=== PATIENT | female | born 2000 | race Two or more races ===

== ENCOUNTER 2025-01-17 19:49 | Emergency (ER) | payer MEDICAID, SELFPAY ==
[2025-01-17 19:50] VITALS: BMI 29.0
[2025-01-17 20:28] VITALS: BP 121/79; PULSE 106; RESP 16; TEMP 37.4; O2SAT 99
--- NOTE | 2025-01-17 20:46 | EDNOTE_ITS ---
Upper Respiratory Inf. RME/HPI General Chief Complaint: Abdominal Pain Stated Complaint: ABD PAIN, FLU LIKE SYMPTOMS Time Seen by Provider: 01/17/25 20:37 Arrival date/time: 01/17/25 19:49 24F with no significant PMH presents to ED with 2 days of cough, body aches, fevers/chills, dysuria, and L pelvic pain. Limitations: no limitations Related Data Home Medications ?Medication ?Instructions ?Recorded ?Confirmed ferrous sulfate 325 mg (65 mg 325 mg PO QDAY 10/10/19 11/06/19 iron) tablet (iron) vits no.124-ferrous fum 1 tab PO QDAY 9 11/06/19 27 mg iron-folic acid 800 mcg tablet ( Vitamin) Previous Rx's ?Medication ?Instructions ?Recorded ibuprofen 600 mg tablet 600 mg PO Q6H PRN pain #20 t abs 07/30/23 ondansetron 4 mg disintegrating 4 mg PO Q8H PRN nausea and 11/15/23 tablet vomiting #30 tabs cefuroxime axetil 500 mg tablet 500 mg PO BID 7 days # 14 tabs 01/17/25 Allergies Allergy/AdvReac Type Severity Reaction Status Date / Time No Known Allergies Allergy Verified 11/06/19 08:22 Review of Systems Review of Systems Systems Reviewed: All systems reviewed, normal except as documented Constitutional Constitutional: Reports system reviewed and no additional complaints, except as documented, Reports as per HPI, Reports body ache(s), Reports chills, Reports fever(s) and Denies headache(s) ENT Ears, Nose, Mouth, and Throat: Denies disequilibrium and Denies headache(s) Cardiovascular Cardiovascular: Reports system reviewed and no additional complaints, except as documented, Denies chest pain and Denies dyspnea Respiratory Respiratory: Reports system reviewed and no additional complaints, except as documented, Reports as per HPI, Reports cough and Denies dyspnea Gastrointestinal Gastrointestinal: Reports system reviewed and no additional complaints, except as documented, Denies abdominal pain, Denies nausea and Denies vomiting Genitourinary Genitourinary: Reports as per HPI, Reports dysuria and Reports pelvic pain Neurologic Neurologic: Reports system reviewed and no additional complaints, except as documented, Denies confusion, Denies disequilibrium and Denies headache(s) Psychiatric Psychiatric: Denies confusion Past Medical History Past Medical History NEUROLOGIC: Negative Neurological Disorders or Seizures CARDIAC: Negative Cardiac Disorders or Congestive Heart Failure RESPIRATORY: Negative Chronic Obstructive Pulmonary Disease (COPD) GASTROINTESTINAL: Negative Gastrointestinal Disorders GENITOURINARY: Negative Genitourinary Disorders or Renal Disease MUSCULOSKELETAL: Negative Musculoskeletal Disorders ENDOCRINE: Negative Endocrine Disorders, Diabetes Mellitus Type 1, Diabetes Mellitus Type 2 or Hypothyroidism HEMATOLOGIC: Positive Blood Disorders and Anemia OTHER HISTORY: Negative Autoimmune Disease, Blood Transfusions, Blood Tr ansfusion Reaction, Anesthesia Reactions, MRSA, VRSA, Vancomycin-Resistant Enterococci, Human Immunodeficiency Virus (HIV), Chicken Pox, Measles, Mumps, Rubella (Nepalese Measles), Pertussis, Clostridium Difficile or Cancer Family History FAMILY HISTORY: Negative Family Psychiatric Problems, Family Respiratory Disorders, Family Cardiac Disorders, Family Gastrointestinal Problems, Family Cancer, Family Surgery or Family Anesthesia Reaction Surgical History SURGICAL: Negative Endocrine Surgery or Section Social History SMOKING STATUS: Never smoker ED Exam General Limitations: Present no limitations General appearance: Present alert and in no apparent distress Head Head exam: Present atraumatic Eye Eye exam: Present normal appearance, PERRL and EOMI ENT ENT exam: Present normal exam, normal oropharynx and mucous membranes moist Neck Neck exam: Present normal inspection, full ROM and trachea midline Chest Chest inspection: Present normal inspection and symmetric chest wall rise Respiratory Respiratory exam: Present normal lung sounds bilaterally Cardiovascular Cardiovascular exam: Present regular rate, normal rhythm and normal heart sounds Abdominal Exam Abdominal exam: Present soft and normal bowel sounds Extremities Exam Extremities exam: Present normal inspection and full ROM Back Exam Back exam: Present normal inspection and full ROM Neurological Exam Neurological exam: Present alert, oriented X3 and CN II-XII intact Psychiatric Psychiatric exam: Present normal affect and normal mood Skin Skin exam: Present warm, dry, intact and normal color Course Quality Measures none Orders Category Date Time Status Bedside Influenza A&B Antigen Test NOW Care 01/17/25 20:23 Completed HCG Qualitative,Urine Stat Lab 01/17/25 21:02 Completed Urinalysis, C/S if Indicated Stat Lab 01/17/25 21:02 Completed Urine Culture Stat Lab 01/17/25 21:02 Received Fluconazole [Diflucan] Med 01/17/25 21:25 Discontinued 150 mg PO X1 ONE cefuroxime axetiL [cefUROXime axetil] Med 01/17/25 21:25 Discontinued 500 mg PO X1 ONE Vital Signs Vital signs: Vital Signs Temperature 99.4 F 01/17/25 20:28 Pulse Rate 106 H 01/17/25 20:28 Respiratory Rate 16 01/17/25 20:28 Blood Pressure 121/79 01/17/25 20:28 Pulse Oximetry (%) 99 01/17/25 20:28 Oxygen Delivery Method Room Air 01/17/25 20:28 O2 at 99% on RA and WNLs Upper Respiratory Infection MDM Narrative MDM Narrative:: 24F with no significant PMH presents to ED with 2 days of cough, body aches, fevers/chills, dysuria, and L pelvic pain. Physical exam reveals nasal congestion, but otherwise clear ENT and lungs. No ab/pelvic/flank tenderness. Patient is afebrile, calm, and alert. Flu A+. HCG neg. UA shows UTI and yeast. Patient data External records reviewed:: [facility] previous records Clinical information provided by:: patient Social determinants that could affect healthcare access:: none Patient has the following chronic illnesses:: none How is presenting disease/condition affected by chronic disease/condition?: no chronic disease Evaluation data The following diagnostics were reviewed and interpreted by me:: lab results Lab and/or radiology exams considered but not ordered:: ordered Interpretation Summary: above Medications / Prescriptions Medications or Prescriptions considered but not ordered:: ordered Medication administrations:: Medication Administration History Discontinued Medications Cefuroxime Axetil (Cefuroxime Axetil 250 Mg Tablet) 500 mg PO X1 ONE Stop: 01/17/25 21:26 Fluconazole (Fluconazole 150 Mg Tablet) 150 mg PO X1 ONE Stop: 01/17/25 21:26 above Consultations Consultation(s) initiated? (list below): No Diagnosis Upper Respiratory Differential Diagnosis: upper respiratory infection, croup, otitis media, sinusitis, viral infection, bronchitis, influenza, pharyngitis and other (uti/pyelo, yeast infection, appy, ovarian torsion, ) Most likely diagnosis given after review of the tests above:: uti, yeast infection, and flu A Admission Indicated Admission indicated?: not indicated Admission Request Was there a request for admission?: No Disposition Plan Disposition Plan: Discharge Discharge Attestation Discharge Attestation: The patient and all family members were given an opportunity to ask questions and understood the discharge instructions. Discharge instructions specifically effects, indications for sooner follow up or return to the emergency department, and the expected course of current diagnosis. Patient condition: Stable Discharge Plan Plan Patient Disposition: HOME (Self Care) Disposition Comment: Stable Prescriptions/Referrals Prescriptions/Med Rec: New cefuroxime axetil 500 mg tablet 500 mg PO BID 7 Days Qty: 14 0RF No Action Vitamin 27 mg iron- 800 mcg Tablet 1 tab PO QDAY ferrous sulfate [iron] 325 mg (65 mg iron) Tablet 325 mg PO QDAY ibuprofen 600 mg tablet 600 mg PO Q6H PRN (Reason: pain) Qty: 20 0RF ondansetron 4 mg tablet,disintegrating 4 mg PO Q8H PRN (Reason: nausea and vomiting) Qty: 30 0RF Referrals: No Primary/Family,Physician [Primary Care Provider] - In 1 week Problem List Clinical Impression: Influenza A, UTI (urinary tract infection), Yeast infection Patient/Caregiver Discharge Instructions Education Materials: ED Influenza (Adult), ED CYSTITIS Female Adult Additional Instructions: Please follow-up with PCP within 24-48 hours and return immediately if symptoms worsen. Ibuprofen/Tylenol can be used simultaneously for greater fever/pain control. Benadryl is good for cough, congestion, and sleep. Print Language: Micronesian Stand Alone Forms: Patient Portal Info Letter PA/DIAGNOSTIC IMAGING MANAGER Supervising Physician PA/DIAGNOSTIC IMAGING MANAGER Supervising Physician: Dr. Pack
[2025-01-17 21:15] LABS: Collection Type, Urine Clean Catch
[2025-01-17 21:22] LABS: Bilirubin,Urine Negative (Negative); Blood,Urine 1+ (Negative); Budding Yeast,Urine Present; Color,Urine Yellow (Lt Yel-Yel); Glucose, Urine Negative (Negative); Ketones,Urine Negative (Negative); Leukocyte Esterase,Urine Positive (Negative); Nitrite,Urine Positive (Negative); PH,Urine 6.5 (5.0-7.0); Protein,Urine 1+ (Neg - Trace); RBC,Urine 13 /hpf (0-3); Specific Gravity,Urine 1.014 (1.001-1.035); Squamous Epithelial Cell,Urine 7 /hpf (0-5); WBC,Urine 897 /hpf (0-5)
[2025-01-17 21:23] LABS: HCG Qualitative,Urine Negative
[2025-01-17 21:24] LABS: Clarity,Urine Turbid (Clear/Hazy); Culture Indicated,Urine Yes
[2025-01-17] MEDS: cefuroxime axetiL 250 MG TABLET 500 MG PO (21:33)
[2025-01-17] MEDS: FLUCONAZOLE 150 MG TABLET PO (21:34)
== END 2025-01-17 21:37 | disposition home or self-care (01) ==
PROVIDERS: Physician Assistant; Emergency Provider Emergency Medicine
DX: J10.1 Influenza due to other identified influenza virus with other respiratory manifestations (principal); N39.0 Urinary tract infection, site not specified; B37.9 Candidiasis, unspecified
CPT/HCPCS: 81001; 81025; 87077; 87086; 87186; 87400; 99283; A9270